=== PATIENT | male | born 1950 | race Caucasian/White ===

== ENCOUNTER → 2018-11-09 10:52 | Outpatient (CLI) | payer OTHER, SELFPAY ==
--- NOTE | 2018-11-09 | DI.RAD.S_ITS ---
PROCEDURE: XR CHEST 2V INDICATIONS: Unspecified atrial fibrillation TECHNIQUE: 2 views of the chest were acquired. COMPARISON: [facility], CHEST 2 VIEW, 09/04/2014, 14:40. [facility], CHEST 2 VIEW, 10/10/2009, 13:05. FINDINGS: Surgical changes and devices: Pacemaking device and dual chamber leads normal.. Lungs and pleura: Lungs are clear. No pleural effusions or pneumothorax. Mediastinum: Mediastinal contours are normal. Heart size is normal. Bones and chest wall: No suspicious bony abnormalities. Soft tissues appear unremarkable. IMPRESSION: Normal chest except for dual-chamber cardiac pacemaking device and leads. Dictated by: Torres Winston M.D. on 11/09/2018 at 11:40 Approved by: Torres Winston M.D. on 11/09/2018 at 11:40
== END ==
PROVIDERS: PCP Internal Medicine; Visit Provider Internal Medicine
DX: I48.91 Unspecified atrial fibrillation (principal); Z95.0 Presence of cardiac pacemaker
CPT/HCPCS: 71046

== ENCOUNTER → 2020-01-03 14:02 | Outpatient (CLI) | payer MEDICARE, BC, SELFPAY ==
[2020-01-03 15:29] LABS: Add Manual Diff / Slide Review NO; Basophils Absolute Auto 100 /uL (0-100); Basophils Percent Auto 0.6 % (0-2); Eosinophils Absolute Auto 300 /uL (0-450); Eosinophils Percent Auto 3.5 % (2-4); Hematocrit 43.7 % (41-53); Hemoglobin 15.1 g/dL (13.5-17.5); Lymphocytes Absolute Auto 2000 /uL (1100-4500); Lymphocytes Percent Auto 22.2 % (25-40); Mean Corpuscular HGB Conc 34.7 % (30-36); Mean Corpuscular Hemoglobin 29.1 PG (26-34); Mean Corpuscular Volume 84.1 fL (80-100); Monocytes Absolute Auto 700 /uL (0-900); Monocytes Percent Auto 7.5 % (3-14); Neutrophils Absolute Auto 6000 /uL (1500-7000); Neutrophils Percent Auto 66.2 % (50-75); Platelet Count 269 X10^3/uL (150-400)
[2020-01-03 16:14] LABS: Alanine Aminotransferase 27 IU/L (<50); Albumin 4.7 g/dL (3.5-5.0); Albumin Globulin Ratio 1.4 (1.0-2.8); Alkaline Phosphatase 68 U/L (38-126); Aspartate Aminotransferase 32 IU/L (17-59); BUN Creatinine Ratio 22.5 (6-22); Bilirubin Total 0.5 mg/dL (0.2-1.3); Blood Urea Nitrogen 27 mg/dL (9-20); Calcium 10.2 mg/dL (8.4-10.2); Carbon Dioxide 29 mmol/L (22-32); Chloride 104 mmol/L (98-107); Estimated Glomerular Filt Rate > 60.0 mL/min (>60); Globulin 3.4 g/dL (1.7-4.1); Glucose 119 mg/dL (80-110); HEMOLYSIS < 15 (0-50); Potassium 4.1 mmol/L (3.4-5.1); Sodium 143 mmol/L (137-145); Total Protein 8.1 g/dL (6.3-8.2)
== END ==
PROVIDERS: PCP Internal Medicine; Referring Provider Internal Medicine Cardiovascular Disease; Visit Provider Internal Medicine Cardiovascular Disease
DX: I48.0 Paroxysmal atrial fibrillation (principal)
CPT/HCPCS: 36415; 80053; 85025

== ENCOUNTER → 2020-05-16 11:17 | Outpatient (CLI) | payer MEDICARE, BC, SELFPAY ==
--- NOTE | 2020-05-16 | DI.RAD.S_ITS ---
PROCEDURE: XR CHEST 2V INDICATIONS: Dyspnea, unspecified TECHNIQUE: 2 views of the chest were acquired. COMPARISON: [facility], CR, XR CHEST 2V, 11/09/2018, 11:02. FINDINGS: Surgical changes and devices: Unchanged left chest wall cardiac pacing device and partially visualized thoracolumbar fusion hardware. Lungs and pleura: Lungs are clear. No pleural effusions or pneumothorax. Mediastinum: Mediastinal contours are normal. Heart size is normal. Bones and chest wall: No suspicious bony abnormalities. Soft tissues appear unremarkable. IMPRESSION: No acute cardiopulmonary process demonstrated radiographically. Dictated by: Reggie Bryant M.D. on 05/16/2020 at 13:29 Approved by: Reggie Bryant M.D. on 05/16/2020 at 13:39
== END ==
PROVIDERS: PCP Internal Medicine; Referring Provider Internal Medicine; Visit Provider Internal Medicine
DX: Z20.828 Contact with and (suspected) exposure to other viral communicable diseases (principal); R06.00 Dyspnea, unspecified; R53.83 Other fatigue; E78.2 Mixed hyperlipidemia; N40.0 Benign prostatic hyperplasia without lower urinary tract symptoms
CPT/HCPCS: 71046; 80053; 80061; 84153; 84443; 85025; 86769

== ENCOUNTER → 2020-05-16 16:04 | Outpatient (ROUT) | payer MEDICARE, BC, SELFPAY ==
[2020-05-16 17:11] LABS: Add Manual Diff / Slide Review NO; Basophils Absolute Auto 100 /uL (0-100); Basophils Percent Auto 0.6 % (0-2); Eosinophils Absolute Auto 200 /uL (0-450); Eosinophils Percent Auto 1.9 % (2-4); Hematocrit 44.5 % (41-53); Hemoglobin 15.1 g/dL (13.5-17.5); Lymphocytes Absolute Auto 2000 /uL (1100-4500); Lymphocytes Percent Auto 21.6 % (25-40); Mean Corpuscular Hemoglobin 28.4 PG (26-34); Mean Corpuscular Volume 83.5 fL (80-100); Monocytes Absolute Auto 800 /uL (0-900); Monocytes Percent Auto 8.3 % (3-14); Neutrophils Absolute Auto 6200 /uL (1500-7000); Neutrophils Percent Auto 67.6 % (50-75); Platelet Count 260 X10^3/uL (150-400); Red Blood Cell Count 5.33 X10^6/uL (4.5-5.9); Red Cell Distribution Width 14.3 % (11.6-14.8); White Blood Cell Count 9.2 X10^3/uL (4.5-11.0)
[2020-05-16 17:46] LABS: Alanine Aminotransferase 32 IU/L (<50); Albumin 4.7 g/dL (3.5-5.0); Albumin Globulin Ratio 1.6 (1.0-2.8); Alkaline Phosphatase 78 U/L (38-126); Aspartate Aminotransferase 35 IU/L (17-59); BUN Creatinine Ratio 24.2 (6-22); Bilirubin Total 0.8 mg/dL (0.2-1.3); Blood Urea Nitrogen 23 mg/dL (9-20); Calcium 10.2 mg/dL (8.4-10.2); Carbon Dioxide 28 mmol/L (22-32); Chloride 104 mmol/L (98-107); Cholesterol 103 mg/dL (140-199); Estimated Glomerular Filt Rate > 60.0 mL/min (>60); Globulin 2.9 g/dL (1.7-4.1); Glucose 120 mg/dL (80-110); HDL Cholesterol 36 mg/dL (40-60); HEMOLYSIS < 15 (0-50); LDL Cholesterol Calculated 40 mg/dL (<100); Potassium 3.9 mmol/L (3.4-5.1); Sodium 140 mmol/L (137-145); Total Protein 7.6 g/dL (6.3-8.2); Triglycerides 137 mg/dL (35-150)
[2020-05-16 18:15] LABS: Prostate Specific Antigen 0.775 ng/mL (0.10-4.00)
[2020-05-18 11:38] LABS: SARS CoV19 IgG Negative (Negative)
== END ==
PROVIDERS: PCP Internal Medicine; Visit Provider Internal Medicine
DX: Z20.828 Contact with and (suspected) exposure to other viral communicable diseases (principal); R53.83 Other fatigue; E78.2 Mixed hyperlipidemia; N40.0 Benign prostatic hyperplasia without lower urinary tract symptoms
CPT/HCPCS: 80053; 80061; 84153; 84443; 85025; 86769

== ENCOUNTER → 2020-09-02 10:27 | Outpatient (CLI) | payer MEDICARE, BC, SELFPAY ==
[2020-09-02 11:09] LABS: COVID19 -Nasal RAPID Negative (Negative)
== END ==
PROVIDERS: PCP Internal Medicine; Visit Provider Physician Assistant
DX: Z01.812 Encounter for preprocedural laboratory examination (principal); Z20.822 Contact with and (suspected) exposure to COVID-19
CPT/HCPCS: 87635; C9803

== ENCOUNTER 2020-09-04 14:55 | Day surgery (SDC) | payer MEDICARE, BC, SELFPAY ==
--- NOTE | 2020-09-04 | PATH_ITS ---
[facility] Accession Number: [id number] . 01 Material submitted: . PART A: cecum - CECAL POLYP PART B: colon - ASCENDING COLON POLYPS PART C: colon - TRANSVERSE POLYPS PART D: colon - DESCENDING COLON POLYP PART E: sigmoid colon - SIGMOID POLYP . 01 Clinical history: . B: POLYPS X2 C: POLYPS X4 . 02 Diagnosis: A. Cecal Polyp: Portions of adenomatous polyp, favor portions of sessile serrated adenoma x4 with low-grade dysplasia; poor tissue orientation is obscuring. No high grade dysplasia identified. . B. Ascending Colon Polyps: Multiple (approximately five) portions of tubular adenoma. . C. Transverse Polyps: Multiple (approximately four) portions of tubular adenoma. . D. Descending Colon Polyp: Portions of tubular adenoma x2. . E. Sigmoid Polyp: Hyperplastic polyp. [facility] 09/09/2020 1049 Local . 02 Electronically signed: . Angela Romero MD, Pathologist NPI- [id number] . 01 Gross description: . Part A: CECAL POLYP: Received in formalin are 4 fragment(s) of [place], soft tissue measuring 0.1 x 0.1 x 0.1 cm to 0.5 x 0.3 x 0.3 cm submitted entirely in 1 cassette(s) Part B: ASCENDING COLON POLYPS: Received in formalin are multiple fragment(s) of [place], soft tissue measuring 0.1 x 0.1 x 0.1 cm to 0.5 x 0.3 x 0.2 cm submitted entirely in 1 cassette(s) Part C: TRANSVERSE POLYPS: Received in formalin are multiple fragment(s) of [place], soft tissue measuring 0.1 x 0.1 x 0.1 cm to 0.3 x 0.2 x 0.2 cm submitted entirely in 1 cassette(s) Part D: DESCENDING COLON POLYP: Received in formalin are 2 fragment(s) of [place], soft tissue measuring 0.5 x 0.5 x 0.4 cm to 1.1 x 0.6 x 0.3 cm submitted entirely in 1 cassette(s) Part E: SIGMOID POLYP: Received in formalin is 1 fragment(s) of l[place], soft tissue measuring 0.2 x 0.2 x 0.2 cm submitted entirely in 1 cassette(s) /HANNA 09/05/2020 2013 Local . 02 Pathologist provided ICD-10: K63.5, Z86.010 . 02 CPT . 285406, 602859, 066412, 823350, 653937 Performed at: [address] [facility] [address] [id number] MD Odilon Duran MD Phone: [phone] Performed at: 02 [facility] [address] [place], [place] [id number] MD Nessa Oswald MD Phone: [phone]
--- NOTE | 2020-09-04 11:44 | P.HP_ITS ---
History of Present Illness History of Present Illness Date Patient Seen: 09/04/20 Chief complaint: SDC Narrative: 70-year-old male with a history of polyps currently on chronic pain medications and Xarelto who is here for polyp surveillance. Patient has held his Xarelto prior to this procedure for 4 days Meds Home Medications and Allergies Home Medications Medication Instructions Recorded Confirmed Type amlodipine 10 mg PO DAILY 09/04/20 09/04/20 History chlorthalidone 25 mg PO DAILY 09/04/20 09/04/20 History flecainide 50 mg PO DAILY 09/04/20 09/04/20 History hydrocodone-acetaminophen 1 tab PO Q4-6H PRN 09/04/20 09/04/20 History levothyroxine 150 mcg PO DAILY 09/04/20 09/04/20 History losartan 100 mg PO DAILY 09/04/20 09/04/20 History metoprolol succinate 50 mg PO DAILY 09/04/20 09/04/20 History rivaroxaban [Xarelto] 20 mg PO DAILY 09/04/20 09/04/20 History rosuvastatin 20 mg PO DAILY 09/04/20 09/04/20 History Allergies Allergy/AdvReac Type Severity Reaction Status Date / Time No Known Drug Allergies Allergy Verified 09/04/20 07:51 Exam Narrative Exam Narrative: General: Patient is obese, not in apparent distress Cardiovascular: Regular rate and rhythm, no murmurs, rubs, or gallops; no evidence of edema; no palpable abdominal aortic aneurysm Gastrointestinal: Normoactive bowel sounds, soft, nontender, nondistended, no rebound tenderness, no hepatosplenomegaly, no evidence of hernia Assessment & Plan Assessment & Plan narrative: 70-year-old male on Xarelto and chronic pain medication who is here for colon polyp surveillance. Anticoagulation has been held appropriately for this procedure Regarding the procedure(s), the risks and potential complications, benefits, and alternatives (including not doing the procedure) were discussed with the kevin benson. The risks include but are not limited to bleeding, splenic injury, infection, perforation which may require surgical intervention, missed lesions, and adverse reactions to sedative medicines. After a question and answer period, the patient agreed to proceed with the procedure(s) and gives informed consent.
[2020-09-04 15:13] VITALS: BP 166/90; PULSE 99; RESP 16; TEMP 36.5; O2SAT 96; BMI 36.8
[2020-09-04] MEDS: SODIUM CHLORIDE 0.9% 1,000 ML 70 ML IV (15:20)
--- NOTE | 2020-09-04 15:26 | PM.OP.ENDO ---
Operative Date/Time/Diagnoses Date of procedure: 09/04/20 Procedure Notes Procedure in detail: Surgeon: Paul Brandon MD Procedure: Colonoscopy with polypectomy Preoperative diagnosis: Colon polyp surveillance Postoperative diagnosis: Colon polyps x9 status post polypectomy; grade 2 internal hemorrhoids Medications: Monitored anesthesia care due to chronic narcotic use Preanesthesia Assessment An H and P was performed/updated and the Px?s ASA class is 3. The procedure was discussed in detail with the patient. The potential risks and complications including infection, bleeding, missed lesions, perforation, need for surgery in case of perforation, prolonged hospital stay, and were explained. A brief question and answer period was allotted and once all questions were answered, informed consent was obtained. The patient was brought back to the procedure room and placed on standard monitoring. The patient?s vital signs were monitored continuously throughout the entire procedure. Prior to starting, a timeout was performed to confirm the patient?s identity, allergies, medications, and procedure. Procedure in detail The patient was placed in left lateral decubitus position and once adequate sedation was obtained a NEO was performed. The digital rectal examination did not reveal any palpable lesions. The tip of the colonoscope was placed in the anal canal and advanced without difficulty all the way to the cecum which was identified by the appendiceal orifice and the ileocecal valve. Careful examination of all [place] of the colon was performed with irrigation of any residual stool. In the cecum, a 6 mm sessile polyp was removed by means of cold snare. Resection and retrieval was complete with minimal bleeding In the ascending colon, a 5 mm sessile polyp was removed by means of cold snare. A 2 mm sessile polyp was removed by means of cold Jumbo forceps. Resection and retrieval was complete with minimal bleeding In the transverse colon, a 4 mm sessile polyp was removed by means of cold snare. Three sessile polyps measuring 2 mm were removed by means of cold Jumbo forceps. Resection retrieval was complete with minimal bleeding In the descending colon, a 4 mm sessile polyp was removed by means of cold snare. Resection retrieval was complete with minimal bleeding. In the sigmoid colon, a 2 mm sessile polyp was removed by means of cold Jumbo forceps. Resection and retrieval was complete with minimal bleeding. Retroflexion was performed in the rectum which revealed grade 2 internal hemorrhoids The patient tolerated the procedure well and will be brought back to the recovery area to be discharged once criteria are met. The prep was judged to be good and adequate to identify polyps less than 5 mm. The withdrawal time was 17 minutes. Complications There were no complications and estimated blood loss was minimal. Recommendations: Resume previous diet Continue outPx medications Resume Xarelto tomorrow Follow up pathology results Repeat colonoscopy in 3 years An emergency contact number was given to the patient for any complications related to the procedure
[2020-09-04 16:00] VITALS: BP 117/60; PULSE 68; RESP 14; TEMP 37.1; O2SAT 95
[2020-09-04 16:05] VITALS: BP 103/51; PULSE 66; RESP 16; O2SAT 95
[2020-09-04 16:10] VITALS: BP 116/69; PULSE 66; RESP 13; O2SAT 94
[2020-09-04 16:14] VITALS: BP 131/70; BP 134/65; PULSE 64; RESP 12; RESP 13; O2SAT 95
[2020-09-04 16:28] VITALS: BP 146/71; PULSE 63; RESP 13; TEMP 36.7; O2SAT 95
== END 2020-09-04 16:55 | disposition home or self-care (01) ==
PROVIDERS: PCP Internal Medicine; Referring Provider Internal Medicine; Visit Provider Internal Medicine Gastroenterology
PROC: 0DJD8ZZ Inspection of Lower Intestinal Tract, Via Natural or Artificial Opening Endoscopic (ICD-10-PCS; CPT 45378; principal; 2020-09-04 16:00)
DX: Z12.11 Encounter for screening for malignant neoplasm of colon (principal); Z86.010 Personal history of colon polyps; I48.91 Unspecified atrial fibrillation; Z79.01 Long term (current) use of anticoagulants; I10 Essential (primary) hypertension; G47.33 Obstructive sleep apnea (adult) (pediatric); E78.5 Hyperlipidemia, unspecified; K64.1 Second degree hemorrhoids; D12.0 Benign neoplasm of cecum; D12.2 Benign neoplasm of ascending colon; D12.3 Benign neoplasm of transverse colon; D12.4 Benign neoplasm of descending colon
CPT/HCPCS: 45385; 45380; J2704

== ENCOUNTER → 2020-10-02 14:56 | Outpatient (ROUT) | payer MEDICARE, BC, SELFPAY ==
[2020-10-02 15:25] LABS: Glucose 114 mg/dL (80-110)
[2020-10-02 15:28] LABS: Hemoglobin A1C% w Est Avg Glu 6.1 % (4.0-6.0)
[2020-10-02 15:54] LABS: TSH w/ Reflex to FT4 2.25 uIU/mL (0.47-4.68)
[2020-10-02 16:32] LABS: Folate 18.5 ng/mL (2.76-20.0); Vitamin B12 387 pg/mL (239-931)
[2020-10-04 11:56] LABS: Alpha 1 Globulin 0.2 g/dL (0.0-0.4); Alpha 2 Globulin 0.8 g/dL (0.4-1.0); Beta 1 Globulin 1.2 g/dL (0.7-1.3); Gamma Globulin 0.8 g/dL (0.4-1.8); Protein, Total 7.1 g/dL (6.0-8.5)
[2020-10-04 12:11] LABS: Alpha-1 Globulin, Ur 4.4 % (.); Beta Globulin, Ur 22.2 % (.); Gamma Globulin, Ur 15.1 % (.); M-Spike % Not Observed % (Not Observed); Urine Total Protein 12.3 mg/dL (Not Estab.)
[2020-10-05 11:36] LABS: Vitamin B6 40.8 ug/L (5.3-46.7)
== END ==
PROVIDERS: PCP Internal Medicine; Visit Provider Internal Medicine
DX: E53.8 Deficiency of other specified B group vitamins (principal); R73.01 Impaired fasting glucose; D47.2 Monoclonal gammopathy; E03.9 Hypothyroidism, unspecified
CPT/HCPCS: 82607; 82746; 82947; 83036; 84155; 84156; 84165; 84166; 84207; 84443

== ENCOUNTER → 2020-12-06 14:11 | Outpatient (CLI) | payer MEDICARE, BC, SELFPAY ==
[2020-12-06 15:50] LABS: Alanine Aminotransferase 39 IU/L (<50); Albumin 4.4 g/dL (3.5-5.0); Albumin Globulin Ratio 1.6 (1.0-2.8); Alkaline Phosphatase 65 U/L (38-126); Aspartate Aminotransferase 40 IU/L (17-59); Bilirubin Total 0.5 mg/dL (0.2-1.3); Blood Urea Nitrogen 22 mg/dL (9-20); Calcium 9.8 mg/dL (8.4-10.2); Carbon Dioxide 29 mmol/L (22-32); Chloride 101 mmol/L (98-107); Estimated Glomerular Filt Rate > 60.0 mL/min (>60); Globulin 2.7 g/dL (1.7-4.1); Glucose 146 mg/dL (80-110); HEMOLYSIS < 15 (0-50); Potassium 3.8 mmol/L (3.4-5.1); Sodium 141 mmol/L (137-145); Total Protein 7.1 g/dL (6.3-8.2)
== END ==
PROVIDERS: PCP Internal Medicine; Referring Provider Internal Medicine Cardiovascular Disease; Visit Provider Internal Medicine Cardiovascular Disease
DX: I48.0 Paroxysmal atrial fibrillation (principal)
CPT/HCPCS: 36415; 80053; 80299

== ENCOUNTER → 2021-05-29 14:12 | Outpatient (CLI) | payer MEDICARE, BC, SELFPAY ==
--- NOTE | 2021-05-29 | DI.RAD.S_ITS ---
PROCEDURE: XR HIP W PEL IF DONE LT 2V INDICATIONS: Unilateral primary osteoarthritis, left hip TECHNIQUE: AP pelvis with lateral view(s) of the left hip(s). COMPARISON: None. FINDINGS: Bones: No fractures or dislocations. Pelvic ring appears intact. No suspicious bony lesions. Mild bilateral hip joint space narrowing and periarticular osteophyte formation. Soft tissues: The visualized bowel gas pattern is normal. No suspicious soft tissue calcifications. IMPRESSION: Bilateral hip osteoarthritis. No acute fracture. No osseous lesion. If symptoms and/or clinical suspicion for pathology persist, further assessment with repeat, or advanced imaging (e.g., CT, MRI, or bone scan) may be helpful for further assessment. Dictated by: Mikie Dove M.D. on 05/29/2021 at 15:57 Approved by: Mikie Dove M.D. on 05/29/2021 at 15:57
== END ==
PROVIDERS: PCP Internal Medicine; Referring Provider Internal Medicine; Visit Provider Internal Medicine
DX: M16.0 Bilateral primary osteoarthritis of hip (principal)
CPT/HCPCS: 73502

== ENCOUNTER → 2022-03-26 15:01 | Outpatient (CLI) | payer MEDICARE, BC, SELFPAY ==
[2022-03-26 16:12] LABS: COVID19 -Nasal RAPID Negative (Negative)
== END ==
PROVIDERS: PCP Internal Medicine; Referring Provider Internal Medicine; Visit Provider Internal Medicine
DX: Z20.822 Contact with and (suspected) exposure to COVID-19 (principal)
CPT/HCPCS: 87635; C9803

== ENCOUNTER → 2022-03-27 14:30 | Outpatient (CLI) | payer MEDICARE, BC, SELFPAY ==
--- NOTE | 2022-04-01 08:58 | P.PFT.S_ITS ---
Pulmonary Function Test Referral & Results Date Patient Seen: 03/27/22 Requesting provider: Abel Ca Results: The spirometry demonstrates an FVC of 4.40 L which is 87% of predicted. The FEV1 was measured at 3.41 L which is 91% of predicted. The FEV1/FVC ratio was 78 which is 106% of predicted. Following the administration of bronchodilator there was a 44% improvement in FEF 25-75%. Lung volumes show an SVC of 4.54 L which is 88% of predicted. The diffusing capacity was measured at 29.50 which is 78% of predicted. The maximum voluntary ventilation was normal Interpretation: This study demonstrates probably normal spirometry. There is evidence of small airway flow improvement following bronchodilator based on improvement in FEF 25- 75% as above Diffusing capacity is probably normal although could be considered minimally abnormal depending on clinical situation Clinical correlation suggested
== END ==
PROVIDERS: PCP Internal Medicine; Referring Provider Internal Medicine; Visit Provider Internal Medicine
DX: R06.02 Shortness of breath (principal); J98.8 Other specified respiratory disorders
CPT/HCPCS: 94060; 94726; 94729

== ENCOUNTER → 2022-11-11 07:33 | Outpatient (CLI) | payer MEDICARE, BC, SELFPAY ==
--- NOTE | 2022-11-11 | DI.ECHO.S_ITS ---
[place] [facility]---------+ [facility] +---------+ : : [address] : : : : [id number] : : : : Phone: [phone]+ Echocardiogram Report + + :Name: SARIKA TENORIO Study Date: 11/11/2022 Height: 74 in : :[facility] ReadingLocation: Weight: 300 lb : : Gender: Male BSA: 2.6 m2 : :: 1950 Age: 72 yrs BP: 132/82 mmHg: :Reason For Study: ATRIAL FIBRILLATION HR: 64 : :Ordering Physician: REYES, : :TRISHA Godwin Performed By: ALBERT ALVAREZ : :Referring: TRISHA CHAMBERS : + + Interpretation Summary The left ventricle is normal in size. The ejection fraction is estimated to be 60-65%. The right ventricle is mildly dilated. The right ventricular systolic function is normal. There is a pacemaker lead in the right ventricle. There is moderate mitral regurgitation. The aortic valve is moderately calcified. The aortic valve is not well visualized.A bicuspid aortic valve cannot be excluded. The peak aortic velocity is 2.4 m/sec. The aortic valve mean gradient is 12 mmHg. There is mild aortic stenosis. There is mild aortic regurgitation. There is mild tricuspid regurgitation. The right ventricular systolic pressure is estimated to be at least 30 mmHg based on an estimated right atrial pressure of 3 mm Hg. Mild atherosclerotic plaque(s) in the aortic arch. Procedure: A two-dimensional transthoracic echocardiogram with color flow and Doppler was performed. The study quality was technically adequate. Comparison is made with the echocardiogram of 10/14/2017. The patient had occasional PVCs during the exam. The patient has a paced rhythm. Left Ventricle: The left ventricle is normal in size. Left ventricular wall thickness is at the upper limits of normal. There is no thrombus. Left ventricular systolic function is normal. The ejection fraction is estimated to be 60-65%. There is a mild dyssynchronous contraction pattern, consistent with a conduction abnormality. Diastolic function could not be accurately assessed due to paced rhythm. Right Ventricle: The right ventricle is mildly dilated. There is a pacemaker lead in the right ventricle. The right ventricular systolic function is normal. Atria: There is moderate biatrial enlargement. There is no Doppler evidence for an interatrial shunt. Mitral Valve: The mitral valve leaflets appear mildly thickened, but open well. The mitral valve leaflets are mildly calcified. There is mild mitral annular calcification. There is moderate mitral regurgitation. Aortic Valve: The aortic valve is moderately calcified. The aortic valve is not well visualized. A bicuspid aortic valve cannot be excluded. There is mild aortic stenosis. The peak aortic velocity is 2.4 m/sec. The aortic valve mean gradient is 12 mmHg. The aortic valve area indexed to the BSA is 0.83 . There is mild aortic regurgitation. Tricuspid Valve: The tricuspid valve is normal. There is mild tricuspid regurgitation. The right ventricular systolic pressure is estimated to be at least 30 mmHg based on an estimated right atrial pressure of 3 mm Hg. Pulmonic Valve: The pulmonic valve leaflets are thin and pliable; valve motion is normal. There is mild pulmonic regurgitation. Great Vessels: The aortic root is normal size. The ascending aorta is mild- moderately enlarged. Mild atherosclerotic plaque(s) in the aortic arch. Pericardium/ Pleura There is no pericardial effusion. There is an anterior echo-free space consistent with a fat pad. There is no pleural effusion. MMode/2D Measurements & Calculations LVIDd: 5.5 cm LVOT diam: 2.0 cm LVIDs: 3.3 cm Ao root diam: 3.6 cm FS: 41.0 % asc Aorta Diam: 4.3 cm IVSd: 1.00 cm Ao Arch Diam (Prox Trans): 3.6 cm LVPWd: 0.97 cm LV marie. diameter/BSA (cm/m^2): 2.1 LV sys. diameter/BSA (cm/m^2): 1.3 LA A2 area: 23.7 cm2 RA long axis: 5.8 cm LA A4 area: 28.0 cm2 RA area: 22.6 cm2 LA length (vol): 6.3 cm RA vol: 75.5 ml LA vol: 89.7 ml RA : 29.3 ml/m2 LA vol index: 34.7 ml/m2 IVC diam: 1.8 cm RVD1 (basal): 5.2 cm TAPSE: 2.2 cm Doppler Measurements & Calculations Ao V2 max: 238.9 cm/sec LVOT Max Donald: 156.8 cm/sec Ao V2 mean: 166.5 cm/sec LV V1 max P.8 mmHg Ao max P.8 mmHg LV V1 VTI: 30.7 cm Ao mean P.2 mmHg LUIS(I,D): 2.1 cm2 Ao V2 VTI: 46.9 cm LUIS(V,D): 2.1 cm2 sev ratio: 0.66 LUIS indexed to BSA (cm^2/m^2): 0.83 AI P1/2t: 500.3 msec AI dec slope: 243.5 cm/sec2 MV E max donald: 80.6 cm/sec TR max donald: 260.8 cm/sec MV A max donald: 82.2 cm/sec TR max P.2 mmHg MV E/A: 0.98 PA V2 max: 124.5 cm/sec Med Peak E' Donald: 7.1 cm/sec PA V2 mean: 84.0 cm/sec E/E' med: 11.3 PA mean P.1 mmHg Lat Peak E' Donald: 8.8 cm/sec PA pr(Accel): 43.0 mmHg E/E' lat: 9.2 E/e' average: 10.3 MV dec time: 0.29 sec MVA(VTI): 3.5 cm2 MV V2 mean: 58.9 cm/sec SV(LVOT): 100.4 ml MV mean P.5 mmHg MV V2 VTI: 28.7 cm Reading Physician:03:55 PM
[2022-11-11 09:11] LABS: Free T4, Direct Thyroxine 1.05 ng/dL (0.78-2.19)
[2022-11-11 09:25] LABS: Thyroid Stimulating Hormone 4.01 uIU/mL (0.47-4.68)
== END ==
PROVIDERS: PCP Physician Assistant; Referring Provider Internal Medicine Cardiovascular Disease; Visit Provider Physician Assistant
DX: I48.0 Paroxysmal atrial fibrillation (principal); I70.0 Atherosclerosis of aorta; I08.3 Combined rheumatic disorders of mitral, aortic and tricuspid valves; I77.89 Other specified disorders of arteries and arterioles; Z95.0 Presence of cardiac pacemaker
CPT/HCPCS: 36415; 84439; 84443; 93306

== ENCOUNTER → 2023-01-07 10:06 | Outpatient (CLI) | payer MEDICARE, BC, SELFPAY ==
[2023-01-07 10:26] LABS: Hematocrit 39.9 % (41-53); Hemoglobin 13.3 g/dL (13.5-17.5); Mean Corpuscular HGB Conc 33.4 % (30-36); Mean Corpuscular Hemoglobin 27.8 PG (26-34); Mean Corpuscular Volume 83.2 fL (80-100); Platelet Count 266 X10^3/uL (150-400); White Blood Cell Count 7.4 X10^3/uL (4.5-11.0)
[2023-01-07 10:53] LABS: Alanine Aminotransferase 28 IU/L (<50); Albumin 4.2 g/dL (3.5-5.0); Albumin Globulin Ratio 1.6 (1.0-2.8); Alkaline Phosphatase 73 U/L (38-126); Aspartate Aminotransferase 25 IU/L (17-59); BUN Creatinine Ratio 22.3 (6-22); Bilirubin Total 0.4 mg/dL (0.2-1.3); Blood Urea Nitrogen 21 mg/dL (9-20); Calcium 9.1 mg/dL (8.4-10.2); Carbon Dioxide 26 mmol/L (22-32); Chloride 106 mmol/L (98-107); Cholesterol 187 mg/dL (140-199); Estimated Glomerular Filt Rate > 60 mL/min (>60); Globulin 2.7 g/dL (1.7-4.1); Glucose 124 mg/dL (80-110); HDL Cholesterol 40 mg/dL (40-60); HEMOLYSIS < 15 (0-50); LDL Cholesterol Calculated 96 mg/dL (<100); Potassium 4.2 mmol/L (3.4-5.1); Sodium 140 mmol/L (137-145); Total Protein 6.9 g/dL (6.3-8.2); Triglycerides 255 mg/dL (35-150)
[2023-01-07 11:18] LABS: TSH w/ Reflex to FT4 5.55 uIU/mL (0.47-4.68)
[2023-01-07 11:21] LABS: Prostate Specific Antigen Scrn 0.955 ng/mL (0.1-4.0)
[2023-01-07 11:54] LABS: Free T4, Direct Thyroxine 1.34 ng/dL (0.78-2.19)
[2023-01-08 08:44] LABS: x Labcorp Estim. Avg Glu (eAG) 137 mg/dL (.); x Labcorp Hemoglobin A1c 6.4 % (4.8-5.6)
== END ==
PROVIDERS: PCP Internal Medicine; Referring Provider Internal Medicine; Visit Provider Internal Medicine
DX: E03.9 Hypothyroidism, unspecified (principal); Z12.5 Encounter for screening for malignant neoplasm of prostate; E78.2 Mixed hyperlipidemia; I10 Essential (primary) hypertension; I48.0 Paroxysmal atrial fibrillation; Z79.01 Long term (current) use of anticoagulants; R73.01 Impaired fasting glucose
CPT/HCPCS: 36415; 80053; 80061; 83036; 84439; 84443; 85027; G0103

== ENCOUNTER 2023-01-09 19:46 | Emergency (ER) | payer MEDICARE, BC, SELFPAY ==
[2023-01-09 20:08] VITALS: BP 192/92; PULSE 86; RESP 18; TEMP 36.7; O2SAT 95; BMI 40.4
[2023-01-09] MEDS: TET,DIPH,PERTUSS(ACELL),VAC/PF 0.5 ML SYRINGE IM (20:52)
[2023-01-09] MEDS: LIDOCAINE 2% W/EPI INJ 20 ML INJ (21:10)
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
[2023-01-09] MEDS: BACITRACIN OINT 0.9 GM PCKT 1 APPLIC TOP (21:46)
[2023-01-09 22:04] VITALS: BP 165/62; PULSE 72; RESP 18; TEMP 36.6; O2SAT 95
== END 2023-01-09 22:05 | disposition home or self-care (01) ==
PROVIDERS: Emergency Provider Emergency Medicine; PCP Internal Medicine
DX: S81.811A Laceration without foreign body, right lower leg, initial encounter (principal); Z79.01 Long term (current) use of anticoagulants; Z79.899 Other long term (current) drug therapy; Z23 Encounter for immunization; W22.8XXA Striking against or struck by other objects, initial encounter
CPT/HCPCS: 12002; 90471; 99283; 90715

== ENCOUNTER → 2023-04-12 16:36 | Outpatient (CLI) | payer MEDICARE, BC, SELFPAY ==
[2023-04-12 17:01] LABS: Hematocrit 40.1 % (41-53); Hemoglobin 13.6 g/dL (13.5-17.5); Mean Corpuscular HGB Conc 33.8 % (30-36); Mean Corpuscular Volume 82.8 fL (80-100); Platelet Count 258 X10^3/uL (150-400); Red Blood Cell Count 4.84 X10^6/uL (4.5-5.9); Red Cell Distribution Width 14.8 % (11.6-14.8); White Blood Cell Count 7.7 X10^3/uL (4.5-11.0)
[2023-04-12 17:07] LABS: HEMOLYSIS < 15 (0-50)
[2023-04-12 17:09] LABS: HEMOLYSIS < 15 (0-50); Iron 92 ug/dL (49-181)
[2023-04-12 17:14] LABS: BUN Creatinine Ratio 22.6 (6-22); Blood Urea Nitrogen 19 mg/dL (9-20); Calcium 9.2 mg/dL (8.4-10.2); Carbon Dioxide 26 mmol/L (22-32); Chloride 103 mmol/L (98-107); Estimated Glomerular Filt Rate > 60 mL/min (>60); Glucose 112 mg/dL (80-110); Potassium 4.2 mmol/L (3.4-5.1); Sodium 139 mmol/L (137-145)
[2023-04-12 17:20] LABS: Percent Iron Saturation 21 % (20-50); Total Iron Binding Capacity 431 ug/dL (261-462); Transferrin 327 mg/dL (206-381)
[2023-04-12 17:41] LABS: TSH w/ Reflex to FT4 3.79 uIU/mL (0.47-4.68)
[2023-04-12 17:46] LABS: Ferritin 31 ng/mL (18-464)
== END ==
PROVIDERS: PCP Internal Medicine; Referring Provider Internal Medicine; Visit Provider Internal Medicine
DX: E03.9 Hypothyroidism, unspecified (principal); R73.01 Impaired fasting glucose; E61.1 Iron deficiency
CPT/HCPCS: 80048; 82728; 83036; 83540; 83550; 84443; 85027

== ENCOUNTER 2023-04-19 11:40 | Emergency (ER) | payer MEDICARE, BC, SELFPAY ==
[2023-04-19 11:44] VITALS: BP 113/56; PULSE 74; RESP 16; TEMP 37.1; O2SAT 96; BMI 39.1
--- NOTE | 2023-04-19 12:49 | ED_ITS ---
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 Got worse yesterday and his noticed it was red and swollen and a little warm to the touch and patient had chills last night. They have been on and off their boat and he has been on his feet a lot on uneven ground. He has chronic neuropathy and does not have much sensation in his feet so he tends to not feel when he twists or strains his foot. says 2 weeks ago they were walking on the beach and later she noticed a small abrasion on his foot which she cleaned off and it has since healed. He does have a history of gout that has presented in the big toe but it has been many years since his last attack. He denies any injury that he can recall. He is not diabetic he just had labs a few days ago. He is on Xarelto for AFib and has a pacemaker. Related Data Home Medications Medication Instructions Recorded Confirmed chlorthalidone 25 mg tablet 25 mg PO DAILY 09/04/20 04/12/23 flecainide 50 mg tablet 50 mg PO Q12H 01/07/23 04/12/23 Previous Rx's Medication Instructions Recorded amlodipine 5 mg tablet 5 mg PO DAILY #90 tabs 01/07/23 losartan 100 mg tablet 100 mg PO DAILY #90 tabs 01/07/23 metoprolol succinate 50 mg 50 mg PO DAILY #90 tabs 01/07/23 tablet,extended release 24 hr rivaroxaban 20 mg tablet (Xarelto) 20 mg PO DAILY #90 tabs 01/07/23 rosuvastatin 20 mg tablet 20 mg PO DAILY #90 tabs 01/07/23 levothyroxine 150 mcg tablet 150 mcg PO DAILY #90 tabs 03/18/23 duloxetine 30 mg capsule,delayed 30 mg PO BID #180 caps 04/12/23 release fentanyl 25 mcg/hr transdermal 1 patch topical Q72H #10 ea 04/12/23 patch fentanyl 25 mcg/hr transdermal 1 patch transdermal Q72H #10 ea 04/12/23 patch fentanyl 25 mcg/hr transdermal 1 patch transdermal Q72H #10 ea 04/12/23 patch hydrocodone 10 mg-acetaminophen 1 tab PO QID PRN Pain (Scale Score 04/12/23 325 mg tablet 1-3) #360 tabs pregabalin 200 mg capsule 200 mg PO BID #180 caps 04/12/23 semaglutide 3 mg tablet (Rybelsus) 3 mg PO DAILY 30 days #30 tabs 04/12/23 semaglutide 7 mg tablet (Rybelsus) 7 mg PO DAILY #90 tabs 04/12/23 cephalexin 500 mg capsule 500 mg PO QID 7 days #28 caps 04/19/23 Allergies Allergy/AdvReac Type Severity Reaction Status Date / Time rosuvastatin AdvReac Intermediate Joint Pain Verified 04/12/23 13:29 Review of Systems <Toña Kidd PA-C - Last Filed: 04/19/23 17:02> Review of Systems ROS Unobtainable: All systems reviewed & are unremarkable except as noted in HPI and below Patient History <Toña Kidd PA-C - Last Filed: 04/19/23 17:02> Medical History Acquired hypothyroidism Benign essential tremor Chicken pox (~1959) Chronic anticoagulation Chronic low back pain Chronic, continuous use of opioids Depression, major, recurrent Essential hypertension Foot pain (~2005) Fractures (~1967) Gout (~2016) History of colonic polyps Impaired fasting glucose Mixed hyperlipidemia Mobitz type 2 second degree atrioventricular block Mumps (~1959) Obesity (BMI 30-39.9) Obstructive sleep apnea Paroxysmal atrial fibrillation Surgical History Anesthesia Ankle fracture (~1959) History of back surgery History of cataract removal with insertion of prosthetic lens History of hip surgery (~2019) History of knee surgery (~2010) Spermatocele (~2013) Status post placement of cardiac pacemaker (~2015) Family History Father History of heart disease Mother Infection Brother Diabetes mellitus Hypertension Hyperlipidemia Brother Diabetes mellitus Hyperlipidemia Hypertension Social History household members: spouse Smoking Status: Never smoker Smoking Status: Never smoker alcohol intake frequency: holidays/special occasions only Substance Use Type: does not use Exam <Toña Kidd PA-C - Last Filed: 04/19/23 17:02> Narrative Exam Narrative: GENERAL: [72] year old patient appears stated age. Well-developed patient, in mild distress. HEAD: Atraumatic. Normocephalic. EYES: Pupils equal round and reactive. Extraocular motions intact. No scleral icterus. No injection or drainage. ENT: Nose without bleeding, purulent drainage. Throat without erythema, tonsillar hypertrophy or exudate. Airway patent. NECK: Trachea midline. Non tender CARDIOVASCULAR: Regular rate and rhythm without murmurs, gallops, or rubs. RESPIRATORY: Clear to auscultation. Breath sounds equal bilaterally. No wheezes, rales, or rhonchi. GASTROINTESTINAL: Abdomen soft, non-tender, nondistended. EXTREMITIES: Left foot with mild erythema across the lateral aspect from the base of the 5th toe to the proximal metatarsal. Mild edema noted. No pinpoint tenderness, patient is sensitive and tender to the area. Area feels warm to touch. BACK: Nontender without deformity or crepitance. No flank tenderness. NEURO: AOx3. SKIN: No rash or erythema of visible areas Initial Vital Signs Initial Vital Signs: Vital Signs Temperature 98.8 F 04/19/23 11:44 Pulse Rate 74 04/19/23 11:44 Respiratory Rate 16 04/19/23 11:44 Blood Pressure 113/56 L 04/19/23 11:44 Pulse Oximetry 96 04/19/23 11:44 Oxygen Delivery Method Room Air 04/19/23 11:44 <Eligio Ross DO - Last Filed: 04/19/23 17:47> Initial Vital Signs Initial Vital Signs: Vital Signs Temperature 98.8 F 04/19/23 11:44 Pulse Rate 74 04/19/23 11:44 Respiratory Rate 16 04/19/23 11:44 Blood Pressure 113/56 L 04/19/23 11:44 Pulse Oximetry 96 04/19/23 11:44 Oxygen Delivery Method Room Air 04/19/23 11:44 Course <RASTA Justice Last Filed: 04/19/23 17:02> Orders Ordered: ED Orders 04/19/23 13:04 XR foot LT min 3V Stat Vital Signs Vital signs: Vital Signs - 8 hr 04/19/23 11:44 04/19/23 15:08 Temperature 98.8 F Pulse Rate 74 75 Respiratory Rate 16 Blood Pressure 113/56 L 115/63 Pulse Oximetry 96 97 Oxygen Delivery Method Room Air Room Air <Eligio Ross DO - Last Filed: 04/19/23 17:47> Orders Ordered: ED Orders 04/19/23 13:04 XR foot LT min 3V Stat Vital Signs Vital signs: Vital Signs - 8 hr 04/19/23 11:44 04/19/23 15:08 Temperature 98.8 F Pulse Rate 74 75 Respiratory Rate 16 Blood Pressure 113/56 L 115/63 Pulse Oximetry 96 97 Oxygen Delivery Method Room Air Room Air MDM - Extremity (Nontraumatic) <Toña Kidd PA-C - Last Filed: 04/19/23 17:02> Imaging Data Extremity x-ray #1: Radiologist's Impression: [address] [address] XRay Report Signed Patient: Tomy Salgado MR#: [id number] : 1950 Acct:[id number] Age/Sex: 72 / M Date of Service: 04/19/23 Loc: ED Accession Number: [id number] ?? Procedure: XR foot LT min 3V Ordering Provider: Toña Kidd P.A-C PROCEDURE:? XR FOOT LT MIN 3V ? INDICATIONS:? L foot pain ? TECHNIQUE:? 3 views of the foot were acquired.? ? COMPARISON:? None. ? FINDINGS:? ? Bones:? No fractures or dislocations.? No suspicious bony lesions.? Bipartite medial sesamoid.? Mild osteoarthritic changes in ankle and foot.? There is a prominent osteophyte or osteochondroma in the anterior superior aspect of the talus. ? Soft tissues:? No tibiotalar joint effusion.? Achilles tendon appears normal.? ? ? IMPRESSION:? ? 1. No acute osseous abnormalities. 2. Mild osteoarthritic changes. 3. A prominent osteophyte versus an osteochondroma in the anterior superior aspect of the talus. ? ? Dictated by: Gabo Goff M.D. on 04/19/2023 at 14:29 ? ? Approved by: Gabo Goff M.D. on 04/19/2023 at 14:33 ? 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 states that yesterday was a lot more red and swollen but she applied a compression bandage in today at slightly improved. Patient states it is very sensitive, warm, hurts most when applying pressure to walk. They have been on a boat and walking on uneven ground and he is unsure if he twisted or injured his foot. noted that he had an abrasion on his left foot 2 weeks ago after walking on the beach and she cleaned it and dressed it and it seemed to heal okay. He has a history of gout but always on his big toe. On exam patient's foot is warm, mildly erythematous, swollen along the lateral aspect, this is not a typical location for gout nor is it in a large joint so this does not clinically fit a picture of gout. X- rays negative for fracture. The most likely diagnosis in this case is cellulitis. Patient is not septic, vital signs reassuring, not acutely ill. Will place patient on Keflex for 7 days and have him follow up with PCP if not improving. Given ED return precautions. [] Multiple etiologies for patient's symptoms considered including, but not limited to: Fracture, sprain, cellulitis, gout, septic joint Prior Charts reviewed: none Labs reviewed and interpreted by myself: none Imaging reviewed: x-ray of left foot Consultations: none Patient's symptoms improved over duration of stay with above-stated therapies. Findings and discharge diagnosis discussed with patient/family followed by verbalization of understanding Return precautions discussed with patient/family whom verbalize understanding of diagnosis and plan Discharge Plan Departure Patient Disposition: Home Clinical Impression: Acute pain of left foot Instructions: DI for Cellulitis -- Adult Activity Restrictions/Additional Instructions: You were seen in the ED today for left foot pain. Your x-ray appears unremarkable with no fracture or other obvious abnormality. Your exam indicates this is most likely a case of cellulitis versus gout. You are being given an antibiotic to take for 7 days please take as prescribed. Please elevate your foot and soak in warm water with Epsom salts several times daily. Please monitor for improvement over the next 72 hours and if no improvement see PCP. We discussed signs and symptoms of worsening condition and when to return to the ED. Prescriptions: New cephalexin 500 mg capsule 500 mg PO QID 7 Days Qty: 28 0RF No Action levothyroxine 150 mcg tablet 150 mcg PO DAILY Qty: 90 3RF fentanyl 25 mcg/hr patch 72 hour 1 patch topical Q72H Qty: 10 0RF fentanyl 25 mcg/hr patch 72 hour 1 patch transdermal Q72H Qty: 10 0RF Rybelsus 3 mg tablet 3 mg PO DAILY 30 Days Qty: 30 0RF fentanyl 25 mcg/hr patch 72 hour 1 patch transdermal Q72H Qty: 10 0RF Rybelsus 7 mg tablet 7 mg PO DAILY Qty: 90 0RF hydrocodone-acetaminophen 10-325 mg tablet 1 tab PO QID PRN (Reason: Pain (Scale Score 1-3)) Qty: 360 0RF pregabalin 200 mg capsule 200 mg PO BID Qty: 180 1RF duloxetine 30 mg capsule,delayed release(DR/EC) 30 mg PO BID Qty: 180 3RF metoprolol succinate 50 mg tablet extended release 24 hr 50 mg PO DAILY Qty: 90 3RF Xarelto 20 mg tablet 20 mg PO DAILY Qty: 90 3RF losartan 100 mg tablet 100 mg PO DAILY Qty: 90 3RF amlodipine 5 mg tablet 5 mg PO DAILY Qty: 90 3RF rosuvastatin 20 mg tablet 20 mg PO DAILY Qty: 90 3RF chlorthalidone 25 mg Tablet 25 mg PO DAILY Hold Instructions: hypotension flecainide 50 mg tablet 50 mg PO Q12H Referrals: Antonio Slater MD [Primary Care Provider] - Stand Alone Forms: Patient Portal/API <Eligio Ross DO - Last Filed: 04/19/23 17:47> [facility] Attestation: Dr Ross Co-Sign Statement: I was available for consultation during this patient's emergency department visit. This chart is signed by myself for administrative purposes only. I did not have direct contact with this patient during this visit. They were seen independently by the APC.
--- NOTE | 2023-04-19 13:04 | DI.RAD.S_ITS ---
PROCEDURE: XR FOOT LT MIN 3V INDICATIONS: L foot pain TECHNIQUE: 3 views of the foot were acquired. COMPARISON: None. FINDINGS: Bones: No fractures or dislocations. No suspicious bony lesions. Bipartite medial sesamoid. Mild osteoarthritic changes in ankle and foot. There is a prominent osteophyte or osteochondroma in the anterior superior aspect of the talus. Soft tissues: No tibiotalar joint effusion. Achilles tendon appears normal. IMPRESSION: 1. No acute osseous abnormalities. 2. Mild osteoarthritic changes. 3. A prominent osteophyte versus an osteochondroma in the anterior superior aspect of the talus. Dictated by: Gabo Goff M.D. on 04/19/2023 at 14:29 Approved by: Gabo Goff M.D. on 04/19/2023 at 14:33
[2023-04-19 15:08] VITALS: BP 115/63; PULSE 75; O2SAT 97
== END 2023-04-19 15:10 | disposition home or self-care (01) ==
PROVIDERS: Emergency Provider Physician Assistant; PCP Internal Medicine
DX: M79.672 Pain in left foot (principal)
CPT/HCPCS: 73630; 99281; 99283

== ENCOUNTER 2023-04-24 14:40 | Emergency (ER) | payer MEDICARE, BC, SELFPAY | END 2023-04-24 15:17 | disposition left against medical advice (07) | PROVIDERS: Emergency Provider Emergency Medicine; PCP Internal Medicine ==

== ENCOUNTER → 2024-01-10 11:41 | Outpatient (CLI) | payer MEDICARE, BC, SELFPAY ==
[2024-01-10 12:50] LABS: Hematocrit 38.4 % (41-53); Hemoglobin 12.6 g/dL (13.5-17.5); Mean Corpuscular HGB Conc 32.9 % (30-36); Mean Corpuscular Hemoglobin 27.6 PG (26-34); Mean Corpuscular Volume 83.8 fL (80-100); Platelet Count 240 X10^3/uL (150-400); Red Blood Cell Count 4.58 X10^6/uL (4.5-5.9); Red Cell Distribution Width 16.2 % (11.6-14.8); White Blood Cell Count 6.5 X10^3/uL (4.5-11.0)
[2024-01-10 13:33] LABS: HEMOLYSIS < 15 (0-50)
[2024-01-10 13:52] LABS: Prostate Specific Antigen 0.933 ng/mL (0.10-4.00)
[2024-01-10 13:54] LABS: TSH w/ Reflex to FT4 1.35 uIU/mL (0.47-4.68)
[2024-01-10 14:00] LABS: Albumin 4.2 g/dL (3.5-5.0); Albumin Globulin Ratio 1.9 (1.0-2.8); Alkaline Phosphatase 79 U/L (38-126); Aspartate Aminotransferase 25 IU/L (17-59); BUN Creatinine Ratio 22.2 (6-22); Bilirubin Total 0.9 mg/dL (0.2-1.3); Blood Urea Nitrogen 18 mg/dL (9-20); Calcium 8.9 mg/dL (8.4-10.2); Carbon Dioxide 28 mmol/L (22-32); Chloride 109 mmol/L (98-107); Cholesterol 147 mg/dL (140-199); Estimated Glomerular Filt Rate > 60 mL/min (>60); Globulin 2.2 g/dL (1.7-4.1); Glucose 128 mg/dL (80-110); HDL Cholesterol 36 mg/dL (40-60); LDL Cholesterol Calculated 80 mg/dL (<100); Total Protein 6.4 g/dL (6.3-8.2); Triglycerides 153 mg/dL (35-150)
[2024-01-10 14:08] LABS: Alanine Aminotransferase 25 IU/L (<50); Potassium 4.8 mmol/L (3.4-5.1); Sodium 142 mmol/L (137-145)
== END ==
PROVIDERS: PCP Internal Medicine; Referring Provider Internal Medicine; Visit Provider Internal Medicine
DX: E78.2 Mixed hyperlipidemia (principal); R73.01 Impaired fasting glucose; N40.1 Benign prostatic hyperplasia with lower urinary tract symptoms; I10 Essential (primary) hypertension; N13.8 Other obstructive and reflux uropathy
CPT/HCPCS: 36415; 80053; 80061; 83036; 84153; 84443; 85027

== ENCOUNTER → 2024-02-16 12:51 | Outpatient (CLI) | payer MEDICARE, BC, SELFPAY ==
[2024-02-16 14:45] LABS: Add Manual Diff / Slide Review NO; Basophils Absolute Auto 0 /uL (0-100); Basophils Percent Auto 0.5 % (0-2); Eosinophils Absolute Auto 200 /uL (0-450); Eosinophils Percent Auto 2.9 % (2-4); Hematocrit 36.5 % (41-53); Hemoglobin 11.7 g/dL (13.5-17.5); Lymphocytes Absolute Auto 1500 /uL (1100-4500); Lymphocytes Percent Auto 20.6 % (25-40); Mean Corpuscular Hemoglobin 26.9 PG (26-34); Mean Corpuscular Volume 84.2 fL (80-100); Monocytes Absolute Auto 600 /uL (0-900); Monocytes Percent Auto 8.8 % (3-14); Neutrophils Absolute Auto 4900 /uL (1500-7000); Neutrophils Percent Auto 67.2 % (50-75); Platelet Count 289 X10^3/uL (150-400); Red Blood Cell Count 4.33 X10^6/uL (4.5-5.9); Red Cell Distribution Width 15.9 % (11.6-14.8); White Blood Cell Count 7.3 X10^3/uL (4.5-11.0)
[2024-02-16 14:51] LABS: BUN Creatinine Ratio 22.4 (6-22); Blood Urea Nitrogen 17 mg/dL (9-20); Calcium 8.8 mg/dL (8.4-10.2); Carbon Dioxide 28 mmol/L (22-32); Chloride 107 mmol/L (98-107); Estimated Glomerular Filt Rate > 60 mL/min (>60); Glucose 106 mg/dL (80-110); HEMOLYSIS < 15 (0-50); Potassium 4.5 mmol/L (3.4-5.1); Sodium 141 mmol/L (137-145)
== END ==
PROVIDERS: PCP Internal Medicine; Referring Provider Nurse Practitioner Family; Visit Provider Nurse Practitioner Family
DX: I48.0 Paroxysmal atrial fibrillation (principal)
CPT/HCPCS: 36415; 80048; 85025

== ENCOUNTER → 2024-03-17 12:53 | Outpatient (CLI) | payer MEDICARE, BC, SELFPAY ==
[2024-03-17 13:25] LABS: Add Manual Diff / Slide Review NO; Basophils Absolute Auto 100 /uL (0-100); Basophils Percent Auto 0.6 % (0-2); Eosinophils Absolute Auto 200 /uL (0-450); Eosinophils Percent Auto 2.5 % (2-4); Hematocrit 42.1 % (41-53); Hemoglobin 13.5 g/dL (13.5-17.5); Lymphocytes Absolute Auto 1500 /uL (1100-4500); Mean Corpuscular HGB Conc 32.1 % (30-36); Mean Corpuscular Hemoglobin 26.2 PG (26-34); Mean Corpuscular Volume 81.8 fL (80-100); Monocytes Absolute Auto 500 /uL (0-900); Monocytes Percent Auto 5.8 % (3-14); Neutrophils Absolute Auto 6500 /uL (1500-7000); Neutrophils Percent Auto 74.1 % (50-75); Platelet Count 310 X10^3/uL (150-400); Red Blood Cell Count 5.15 X10^6/uL (4.5-5.9); Red Cell Distribution Width 16.2 % (11.6-14.8); White Blood Cell Count 8.8 X10^3/uL (4.5-11.0)
[2024-03-17 13:37] LABS: Blood Urea Nitrogen 17 mg/dL (9-20); Calcium 9.2 mg/dL (8.4-10.2); Carbon Dioxide 28 mmol/L (22-32); Chloride 107 mmol/L (98-107); Estimated Glomerular Filt Rate > 60 mL/min (>60); Glucose 120 mg/dL (80-110); HEMOLYSIS 23 (0-50); Sodium 141 mmol/L (137-145)
== END ==
PROVIDERS: PCP Internal Medicine; Referring Provider Nurse Practitioner Family; Visit Provider Nurse Practitioner Family
DX: I48.0 Paroxysmal atrial fibrillation (principal)
CPT/HCPCS: 36415; 80048; 85025

== ENCOUNTER → 2025-01-04 08:48 | Outpatient (CLI) | payer MEDICARE, BC, SELFPAY ==
[2025-01-04 09:28] LABS: Hematocrit 41.9 % (41-53); Hemoglobin 13.9 g/dL (13.5-17.5); Mean Corpuscular HGB Conc 33.3 % (30-36); Platelet Count 250 X10^3/uL (150-400); Red Blood Cell Count 4.81 X10^6/uL (4.5-5.9); Red Cell Distribution Width 14.4 % (11.6-14.8); White Blood Cell Count 7.8 X10^3/uL (4.5-11.0)
[2025-01-04 09:34] LABS: Hemoglobin A1C% w Est Avg Glu 5.8 % (4.0-6.0)
[2025-01-04 09:46] LABS: Alanine Aminotransferase 29 IU/L (<50); Albumin 4.6 g/dL (3.5-5.0); Albumin Globulin Ratio 2.2 (1.0-2.8); Alkaline Phosphatase 82 U/L (38-126); Aspartate Aminotransferase 33 IU/L (17-59); BUN Creatinine Ratio 21.1 (6-22); Bilirubin Total 0.6 mg/dL (0.2-1.3); Blood Urea Nitrogen 19 mg/dL (9-20); Calcium 9.4 mg/dL (8.4-10.2); Carbon Dioxide 27 mmol/L (22-32); Chloride 104 mmol/L (98-107); Cholesterol 178 mg/dL (140-199); Estimated Glomerular Filt Rate > 60 mL/min (>60); Globulin 2.1 g/dL (1.7-4.1); Glucose 124 mg/dL (70-99); HDL Cholesterol 41 mg/dL (40-60); HEMOLYSIS < 15 (0-50); LDL Cholesterol Calculated 89 mg/dL (<100); Potassium 4.1 mmol/L (3.4-5.1); Sodium 141 mmol/L (137-145); Total Protein 6.7 g/dL (6.3-8.2); Triglycerides 238 mg/dL (35-150)
[2025-01-04 10:14] LABS: TSH w/ Reflex to FT4 1.88 uIU/mL (0.47-4.68)
[2025-01-04 10:16] LABS: Prostate Specific Antigen 1.12 ng/mL (0.10-4.00)
== END ==
PROVIDERS: PCP Internal Medicine; Referring Provider Internal Medicine; Visit Provider Internal Medicine
DX: E03.9 Hypothyroidism, unspecified (principal); R73.01 Impaired fasting glucose; N40.1 Benign prostatic hyperplasia with lower urinary tract symptoms; I48.0 Paroxysmal atrial fibrillation; N13.8 Other obstructive and reflux uropathy
CPT/HCPCS: 36415; 80053; 80061; 83036; 84153; 84443; 85027